=== PATIENT | male | born 2000 | race Caucasian/White ===

== ENCOUNTER 2025-06-12 08:48 | Emergency (ER) | payer BC, SELFPAY ==
[2025-06-12 08:53] VITALS: BP 95/47
[2025-06-12 09:05] VITALS: BMI 19.2
[2025-06-12] MEDS: TORADOL 30 MG IV (09:19)
[2025-06-12] MEDS: NSS 1000 IV (09:20)
[2025-06-12 09:21] LABS: Hematocrit 46.6 % (39.0-52.0); Hemoglobin 16.6 g/dL (13.0-18.0); Mean Corp Hgb Conc. 35.6 g/dL (33.0-37.0); Mean Corpuscular Volume 83.1 fL (80.0-94.0); Nucleated Red Blood Cells % 0 % (-); Platelet Count 266 10^3/uL (130-400); Red Cell Dist. Width 12.2 % (11.5-14.5)
[2025-06-12 09:37] LABS: ALT (SGPT) 30 U/L (0-50); AST (SGOT) 26 U/L (17-59); Albumin 5.1 g/dl (3.5-5.0); Alkaline Phosphatase 62 U/L (38-126); Blood Urea Nitrogen 12 mg/dl (9-20); Calcium 9.8 mg/dl (8.4-10.2); Carbon Dioxide 24 mmol/L (22-30); Chloride 105 mmol/L (98-107); Estimated Creatinine Clearance 110 ml/min; Glucose 108 mg/dl (70-99); Potassium 4.2 mmol/L (3.5-5.1); Sodium 139 mmol/L (135-145); Total Protein 8.0 g/dl (6.3-8.2); eGFR > 60.00
[2025-06-12 10:25] VITALS: BP 98/53
[2025-06-12] MEDS: FLOMAX 0.4 MG PO (10:41)
[2025-06-12] MEDS: TYLENOL 1000 MG PO (11:23)
[2025-06-12 11:52] LABS: Urine Character Clear (Clear)
[2025-06-12 11:58] LABS: Urine Squamous Cell 0-2 /LPF (Few)
[2025-06-12 11:59] LABS: Urine Red Blood Cell 50-60 /HPF (0-2)
--- NOTE | 2025-06-12 13:06 | ED.GENMED ---
History of Present Illness
General
Chief Complaint: Flank Pain
Time Seen by Provider: 06/12/25 08:58
History of Present Illness
History of Present Illness:
see MDM
Phy Exam
Physical Exam
Physical Exam:
see MDM
Course
Orders/Labs/Results
Orders:
Orders
06/12/25 09:07
Complete Blood Count/With Diff Urgent
Comprehensive Metabolic Panel Urgent
06/12/25 09:15
0.9% Sodium Chloride 1000 ml [Nss] 1,000 ml IV BOLUS
Ketorolac [Toradol] 30 mg IV NOW STA
06/12/25 09:16
CT Abd/pel Without Iv Or Oral Urgent
Comment:
Reason For Exam: R flank pain, hematuria
06/12/25 10:31
Tamsulosin [Flomax] 0.4 mg PO NOW STA
06/12/25 10:48
Acetaminophen [Tylenol] 1,000 mg PO NOW STA
06/12/25 11:24
Urinalysis Reflex To Culture Urgent
Date Specimen was Collected: 06/12/25
Time Specimen was Collected: 11:21
Urine Microscopic Reflex Cult Urgent
Urine Culture Urgent
KRISTINA Source: U
Specimen Description:
Date Specimen was Collected: 06/12/25
Time Specimen was Collected: 11:21
Abnormal Lab Results
06/12/25 06/12/25
09:07 11:24
MPV 10.8 H fL
(7.4-10.4)
Absolute Lymphs (auto) 4.0 H 10^3/uL
(1.2-3.4)
Absolute Monos (auto) 0.8 H 10^3/uL
(0.1-0.6)
Neutrophils % 41.1 L %
(42.2-75.2)
Glucose 108 H mg/dl
(70-99)
Albumin 5.1 H g/dl
(3.5-5.0)
Urine Ketones 1+ A
(Negative)
Ur Occult Blood Reflex 4+ A
(Negative)
Leukocyte Esterase Rfl 1+ A
(Negative)
Urine RBC 50-60 A /HPF
(0-2)
Urine Bacteria (Reflex) Few A
(Negative)
Urine Albumin (Reflex) 2+ A
(Neg - Trace)
06/12/25 09:07
06/12/25 09:07
Vital Signs
Initial and Last Documented VS:
Initial Vital Signs
Temp Pulse Resp BP Pulse Ox
36.4 C 69 18 95/47 100
06/12/25 08:53 06/12/25 08:53 06/12/25 08:53 06/12/25 08:53 06/12/25 08:53
Last Documented Vital Signs
Temp Pulse Resp BP Pulse Ox
36.4 C 69 16 98/53 100
06/12/25 08:53 06/12/25 10:25 06/12/25 10:25 06/12/25 10:25 06/12/25 10:25
MDM/Problems Addressed
Differential Diagnosis Includes:
see MDM
MDM/Problems Addressed:
Note:
CHIEF COMPLAINT(S)
Severe abdominal pain, suspected kidney stone.
HISTORY OF PRESENT ILLNESS
The patient is a 25-year-old male who presented with severe abdominal pain, suspecting it to be due to a kidney stone. The pain was described as reaching a level of ten out of ten when he awoke this morning at approximately 9:30 AM, accompanied by
sweating. The pain was initially severe but had decreased to a six or seven out of ten at the time of presentation. The patient reported blood in his urine two days prior, which was initially described as red but translucent, no clots, but the urine
cleared to a yellow color over the last two days.
He had visited urgent care 4 days agoy and a doctor on 3 days ago, during which he had no pain or further blood in the urine. Over the weekend, he remained symptom-free until the sudden onset of severe pain this morning. He denied any trauma to the
back or falls.
The patient has an ultrasound scheduled for tomorrow and a computed tomography scan was discussed as a more definitive diagnostic test for detecting the kidney stone.
no fever, rigords, weakness, diarrhea, constipation, dysuria
PAST MEDICAL AND SURGICAL HISTORY
Not discussed.
SOCIAL DETERMINANTS AFFECTING HEALTH
The patient is currently unemployed, having recently graduated from school, and is looking for a job.
ALLERGIES
The patient reports no known drug allergies.
PHYSICAL EXAM
- Nursing notes reviewed and vital signs reviewed.
- Abdominal examination for tenderness, pain evaluation, and abdomen positioning was conducted.
PROBLEM LIST
Acute: Suspected kidney stone with associated severe abdominal pain and hematuria.
PLAN
- Administer intravenous fluids and analgesics for pain management.
- Conduct a computed tomography scan of the abdomen and pelvis to evaluate for kidney stones.
- Follow up with lab work to assess kidney function.
- Monitor the size of the stone; if smaller than seven millimeters, provide conservative management with increased fluids and pain medication.
- Discuss urology consultation if the stone is large or not passing.
DIFFERENTIAL DIAGNOSIS
The Differential Diagnosis includes, in no particular order and is not limited to:
- Nephrolithiasis (kidney stone)
- Ureteral stone
- Pyelonephritis
- Urinary tract infection
- Appendicitis
- Diverticulitis
- Gastroenteritis
- Biliary colic
- Lower urinary tract obstruction
- Renal colic
CARE-UPDATE
06/12/25 - 09:49
Patient reports a reduction in pain, currently rating it as a 2 or 3 on a scale, indicating significant improvement. Imaging suggests a possible 5-millimeter stone in the ureter, believed to be passable with the aid of Flomax to facilitate
expulsion. Kidney function remains normal, and there is no sign of infection. The patient has been informed that, should the stone be larger than initially estimated or if passing it naturally becomes unlikely, consultation with urology may be
necessary. Instructions provided on maintaining arm position during fluid administration to ensure comfort and efficiency, with reassurance given about the typical pain reduction once the stone reaches the bladder.
CARE-UPDATE
06/12/25 - 12:20
The patient has been cleared to go home, as the blood in the urine and presence of white cells and bacteria align with the expected findings due to kidney stones, discussed wwith the urologist dr. meyer whom i spoke with, did not recommend abx.
Blood work shows no sign of infection. The patient did not pass the stones yet but is instructed to use a reusable strainer to catch any stones for analysis. Pain management includes alternating Tylenol with ibuprofen and, if necessary, oxycodone
with caution. If stones are passed, the patient should cease medication and schedule a follow-up with urology for stone analysis. Prescriptions will be sent to the patient�s pharmacy at [facility] and [facility].
*Pulse Oximetry
SaO2: 100
Oxygen Mode of Delivery: Room air
Patient hypoxic: no (100)
*Critical Care Note
Total Time (30-74mins, 75-104mins- exclusive of procedures): Not Applicable
ED Attending Note
-
Portions of this chart may have been created with voice recognition software.� Occasional wrong word or��sound alike� substitutions may have occurred due to the inherent limitations of voice recognition software.
Discharge Plan
Departure
Patient Disposition: Home (Routine Discharge)
Date of Disposition: 06/12/25
Time of Disposition: 12:21
Patient with high blood pressure during this ER visit?: No
Condition: Fair
Covid-19: Not Applicable
Discharge Problem:
Kidney stone
Instructions: Kidney Stones (DC), How to Strain Your Urine
Prescriptions:
New
ibuprofen 600 mg tablet
600 mg PO TID PRN (Reason: Pain) Qty: 20 0RF
tamsulosin [Flomax] 0.4 mg capsule
0.4 mg PO DAILY Qty: 14 0RF
oxycodone 5 mg tablet
5 mg PO BID PRN (Reason: Pain) Qty: 5 0RF
No Action
amoxicillin-pot clavulanate 1 TABLET tablet
1 tab PO Q12 10 Days 0RF
Referrals:
Yunior Alex I., [Family Provider, Internal Medicine]
Andres Meyer MD [Active, Urology] - Follow up in 1 week
Activity Restrictions/Additional Instructions:
Your pain is from 2 adjacent stones in your right ureter measuring 5 and 4 mm. Drink plenty of fluids to help pass the stone. Around 3:00 you can take another dose of ibuprofen, I prescribed 600 mg tablets you can take 1 every 8 hours. For
additional pain you can use 1 g of Tylenol, next 2 extra strength Tylenol every 4-6 hours. Your next dose of that could be around 4 PM.
If the pain is more severe you can try oxycodone 5 mg, you can cut the pill in half or take a whole pill every 8-12 hours. If your pain is exceeding this regimen you need to return to the emergency department. Use Flomax once a day until you pass
the stone. Each time you pee you should pee through the strainer. Call the urologist for an appointment. Return for pain, fever, shaking chills, vomiting, inability to urinate or any concerning
Interventions
Interventions:
*Risk Screen - Suicide Last Done: 06/12/25 08:53
*Nursing Disposition Last Done: 06/12/25 13:12
RM-Xrjvpk-Dtiwxcblms Assessment Last Done: 06/12/25 09:05
ED-Male Genitourinary Assessment Last Done: 06/12/25 09:05
Discharge Date and Time
Discharge Date/Time: 06/12/25 13:12
Print Language: PUERTO RICAN
== END 2025-06-12 13:12 | disposition home or self-care (01) ==
LOC: EMR 08:48
PROVIDERS: Physician Assistant; EMERGENCY PHYSICIAN Emergency Medicine; FAMILY PHYSICIAN Internal Medicine
DX: N13.2 Hydronephrosis with renal and ureteral calculous obstruction (principal)
CPT/HCPCS: 99284; 96374; 96361; 74176; 80053; 81003; 81015; 85025; 87086

== ENCOUNTER 2025-06-16 21:40 | Emergency (ER) | payer BC, OTHER, SELFPAY ==
[2025-06-16 21:42] VITALS: BP 124/84
[2025-06-16 23:29] VITALS: BMI 18.8
--- NOTE | 2025-06-16 23:30 | ED.GENMED ---
ED Provider Triage
<Fernando Man MD, Resident - Last Filed: 06/17/25 02:14>
-
Patient seen by provider in Triage?: Seen in Triage
History of Present Illness
<Fernando Man MD, Resident - Last Filed: 06/17/25 02:14>
General
Chief Complaint: Flank Pain
Source: patient
Exam Limitations: none
Time Seen by Provider: 06/16/25 23:08
Nursing documentation reviewed up to this point in time: agreed with
History of Present Illness
History of Present Illness:
Pt is a 25M who is complaining of moderate right sided flank pain that radiates to his groin. Associated with nausea and one episode of vomiting. No fever, chills, hematuria, dysuria. He was previously diagnosed on 06/12/25 with mild hydronephrosis
and a couple of 4-5 mm kidney stones after confirmation on CT scan and then he was discharged with 600 mg of ibuprofen, Flomax, oxycodone advice to hydrate adequately to help pass the stone, and a f/u with urologist Dr. Shultz. Since then, he still
has not passed any stones and came into the ED today because he checked his temperature at home and it was 101, he was concerned he had pyelonephritis. However in triage his temp was 97.6 F.
Past History
<Fernando Man MD, Resident - Last Filed: 06/17/25 02:14>
Past History
ED Past Medical History: Other (hydro nephrosis, kidney stones )
ED Past Surgical History: None
Patient has exhibited threatening behavior?: No
Social History
Tobacco: Non-smoker
Alcohol: None
Drug: None
Personal: Single
Living: with family
Review of Systems
<Fernando Man MD, Resident - Last Filed: 06/17/25 02:14>
Review of Systems
All Other Systems: ROS reviewed and negative except as documented in HPI and ROS
Phy Exam
<Fernando Man MD, Resident - Last Filed: 06/17/25 02:14>
General Physical Exam
General Presentation: well appearing and no apparent distress
General Skin: warm and dry
General Habitus: normal
General Mental: alert
Cardiovascular Exam
Cardiovascular Exam: regular rate/rhythm and no edema
Pulmonary Exam
Pulmonary Exam: lungs clear and no respiratory distress
Gastrointestinal Exam
Gastrointestinal Exam: normal bowel sounds, soft, non distended and tender (right upper quadrant tenderness on palpation )
Neurological Exam
Neurological Exam: alert and oriented x3
Skin Exam
Skin Exam: normal color, warm/dry, no rash and no petechia
Psychiatric Exam
Psychiatric Exam: normal mood/affect
Course
<Fernando Man MD, Resident - Last Filed: 06/17/25 02:14>
Orders/Labs/Results
Orders:
Orders
06/16/25 23:23
Urinalysis Reflex To Culture Urgent
Date Specimen was Collected: 06/17/25
Time Specimen was Collected: 00:09
06/16/25 23:38
CBC/With Diff [Complete Blood Count/With Diff] Urgent
CMP [Comprehensive Metabolic Panel] Urgent
06/17/25 00:10
Urine Microscopic Reflex Cult Urgent
Abnormal Lab Results
06/16/25 06/17/25
23:38 00:10
MPV 10.6 H fL
(7.4-10.4)
Absolute Neuts (auto) 6.6 H 10^3/uL
(1.4-6.5)
Absolute Monos (auto) 1.0 H 10^3/uL
(0.1-0.6)
Lymphocytes % 19.4 L %
(20.5-51.1)
Monocytes % 10.4 H %
(1.7-9.3)
Chloride 108 H mmol/L
(98-107)
Glucose 106 H mg/dl
(70-99)
Ur Occult Blood Reflex 4+ A
(Negative)
Urine RBC 7-10 A /HPF
(0-2)
Urine Albumin (Reflex) 1+ A
(Neg - Trace)
06/16/25 23:38
06/16/25 23:38
Vital Signs
Initial and Last Documented VS:
Initial Vital Signs
Temp Pulse Resp BP Pulse Ox
97.6 F 103 20 124/84 98
06/16/25 21:42 06/16/25 21:42 06/16/25 21:42 06/16/25 21:42 06/16/25 21:42
Last Documented Vital Signs
Temp Pulse Resp BP Pulse Ox
98.2 F 74 18 111/79 100
06/17/25 01:30 06/17/25 01:30 06/17/25 01:30 06/17/25 01:30 06/17/25 01:30
<Nati Flores, - Last Filed: 06/17/25 01:02>
Orders/Labs/Results
Orders:
Orders
06/16/25 23:23
Urinalysis Reflex To Culture Urgent
Date Specimen was Collected: 06/17/25
Time Specimen was Collected: 00:09
06/16/25 23:38
CBC/With Diff [Complete Blood Count/With Diff] Urgent
CMP [Comprehensive Metabolic Panel] Urgent
06/17/25 00:10
Urine Microscopic Reflex Cult Urgent
Abnormal Lab Results
06/16/25 06/17/25
23:38 00:10
MPV 10.6 H fL
(7.4-10.4)
Absolute Neuts (auto) 6.6 H 10^3/uL
(1.4-6.5)
Absolute Monos (auto) 1.0 H 10^3/uL
(0.1-0.6)
Lymphocytes % 19.4 L %
(20.5-51.1)
Monocytes % 10.4 H %
(1.7-9.3)
Chloride 108 H mmol/L
(98-107)
Glucose 106 H mg/dl
(70-99)
Ur Occult Blood Reflex 4+ A
(Negative)
Urine RBC 7-10 A /HPF
(0-2)
Urine Albumin (Reflex) 1+ A
(Neg - Trace)
06/16/25 23:38
06/16/25 23:38
Vital Signs
Initial and Last Documented VS:
Initial Vital Signs
Temp Pulse Resp BP Pulse Ox
97.6 F 103 20 124/84 98
06/16/25 21:42 06/16/25 21:42 06/16/25 21:42 06/16/25 21:42 06/16/25 21:42
Last Documented Vital Signs
Temp Pulse Resp BP Pulse Ox
98.2 F 74 18 111/79 100
06/17/25 01:30 06/17/25 01:30 06/17/25 01:30 06/17/25 01:30 06/17/25 01:30
<Fernando Man MD, Resident - Last Filed: 06/17/25 02:14>
MDM/Problems Addressed
Differential Diagnosis Includes:
- Nephrolithiasis , Ureteral stone, Pyelonephritis, Urinary tract infection, biliary colic, appendicitis, renal colic
MDM/Problems Addressed:
25 male with intermittent right flank pain radiating to this groin associated with nausea and vomiting. Right upper quadrant abdominal tenderness on palpation.
- CBC unremarkable
- CMP unremarkable
- UA shows 4+ occult blood
- Patient will be discharged home with instructions to f/u with urologist and continue flomax, ibuprofen, and hydrate adequatley.
<Fernando Man MD, Resident - Last Filed: 06/17/25 02:14>
*Pulse Oximetry
SaO2: 98
Oxygen Mode of Delivery: Room air
Patient hypoxic: no
*Critical Care Note
Total Time (30-74mins, 75-104mins- exclusive of procedures): Not Applicable
ED Attending Note
<Fernando Man MD, Resident - Last Filed: 06/17/25 02:14>
-
Portions of this chart may have been created with voice recognition software.� Occasional wrong word or��sound alike� substitutions may have occurred due to the inherent limitations of voice recognition software.
<Nati Flores DO - Last Filed: 06/17/25 01:02>
ED Attending Note
Patient seen and examined by attending physician: Yes
I performed the substantive portion of visit, reviewed & personally made and approve the management plan that is documented in note by myself or DOLORES.: Yes
I performed a history and physical exam of patient and discussed management with resident, I reviewed resident's note and agree with documented findings and plan of care.: Yes
ED Attending Note:
25-year-old male without significant past medical history presenting for concern of fever. Patient recently seen in the hospital on 06/12 with right-sided back and abdominal pain, found to have 2 kidney stones, 4 mm and 5 mm in size. Patient was
discharged with pain control and told to follow-up with urology, has an appointment on Thursday. He does not believe that he has passed the stones yet. Pain has been manageable with ibuprofen, however prior to arrival had a temperature of 101 with
forehead thermometer. He notes that he felt a little bit warm. Last dose of Tylenol or ibuprofen was earlier in the afternoon, no medication prior to arrival. Notes that his pain is currently controlled. Denies any specific urinary complaints.
Denies any additional acute medical complaints. Vital signs on arrival are normal.
On exam patient is resting comfortably, nontoxic. No present fever. Overall low suspicion for infected kidney stone. No tenderness to the abdomen or flank without indication for repeat imaging. Will repeat laboratory analysis to ensure no
developing leukocytosis and will also recheck urinalysis to ensure no UTI. Will continue to monitor patient's temperature.
01:00 - Patient remains afebrile, no leukocytosis, no signs of UTI. Ultimately feel stable for discharge with continued outpatient supportive management and urologic follow-up. Return precautions discussed patient verbalized understand
Discharge Plan
Departure
Patient Disposition: Home (Routine Discharge)
Patient with high blood pressure during this ER visit?: No
Condition: Fair
Discharge Problem:
Kidney stone
Instructions: Kidney stones in adults - ED (DC)
Prescriptions:
New
ibuprofen 600 mg tablet
600 mg PO Q8H PRN (Reason: Pain) Qty: 20 0RF
tamsulosin [Flomax] 0.4 mg capsule
0.4 mg PO DAILY 5 Days Qty: 5 0RF
ibuprofen 600 mg tablet
600 mg PO Q8H PRN (Reason: Pain) Qty: 14 0RF
tamsulosin [Flomax] 0.4 mg capsule
0.4 mg PO DAILY Qty: 7 0RF
No Action
ibuprofen 600 mg tablet
600 mg PO TID PRN (Reason: Pain) Qty: 20 0RF
tamsulosin [Flomax] 0.4 mg capsule
0.4 mg PO DAILY Qty: 14 0RF
oxycodone 5 mg tablet
5 mg PO BID PRN (Reason: Pain) Qty: 5 0RF
Referrals:
Yunior Alex I., [Family Provider, Internal Medicine]
Activity Restrictions/Additional Instructions:
1. Take ibuprofen as prescribed. Refilled patients ibuprofen.
2. Drink at least 3 liters of water a day
3. Take tamsulosin once a day
4. F/u with Urologist Dr. Peffer as scheduled.
Thank you for visiting the Emergency Department at [facility].
1. Please schedule a follow up appointment as directed. Call first thing tomorrow morning to make an appointment.
2. If indicated, please take your medications as instructed and indicated on discharge paperwork.
3. If any of your symptoms do not improve, or persist, or become more severe within 6-12 hours, please return to the emergency department for further care.
4. Please return to the emergency department if you develop a headache, neck pain/stiffness, fever greater than 100.4F, chest pain, shortness of breath, persistent nausea, vomiting, slurred speech, difficulty walking, numbness/tingling, weakness,
signs of infection or any other symptoms that are worrisome to you.
Please call [phone] if you have any questions.
Interventions
Interventions:
*Risk Screen - Suicide Last Done: 06/16/25 23:29
*General Assessment Last Done: 06/16/25 21:42
*Neglect/Abuse Screening Last Done: 06/16/25 23:08
*ED- Fall Risk Assessment Last Done: 06/16/25 23:08
*ED COVID-19 Vaccine History Last Done: 06/16/25 23:08
*ED Influenza Vaccine History Last Done: 06/16/25 23:08
*Nursing Disposition Last Done: 06/17/25 01:32
EK-Gskgqc-Xxrjjgocwg Assessment Last Done: 06/16/25 23:39
ED-Male Genitourinary Assessment Last Done: 06/16/25 23:39
Discharge Date and Time
Discharge Date/Time: 06/17/25 01:33
Print Language: GREEK
[2025-06-16 23:31] VITALS: BP 133/71
[2025-06-16 23:47] LABS: Hematocrit 40.5 % (39.0-52.0); Hemoglobin 14.9 g/dL (13.0-18.0); Mean Corp Hgb Conc. 36.8 g/dL (33.0-37.0); Mean Corpuscular Volume 82.8 fL (80.0-94.0); Nucleated Red Blood Cells % 0 % (-); Platelet Count 225 10^3/uL (130-400); Red Cell Dist. Width 11.8 % (11.5-14.5)
[2025-06-17 00:09] LABS: ALT (SGPT) 18 U/L (0-50); AST (SGOT) 22 U/L (17-59); Albumin 4.3 g/dl (3.5-5.0); Alkaline Phosphatase 53 U/L (38-126); Blood Urea Nitrogen 13 mg/dl (9-20); Calcium 9.3 mg/dl (8.4-10.2); Carbon Dioxide 25 mmol/L (22-30); Chloride 108 mmol/L (98-107); Estimated Creatinine Clearance 98 ml/min; Glucose 106 mg/dl (70-99); Potassium 3.9 mmol/L (3.5-5.1); Sodium 140 mmol/L (135-145); Total Protein 6.7 g/dl (6.3-8.2); eGFR > 60.00
[2025-06-17 00:52] LABS: Urine Character Clear (Clear)
[2025-06-17 01:26] LABS: Urine Squamous Cell 0-2 /LPF (Few)
[2025-06-17 01:30] VITALS: BP 111/79
== END 2025-06-17 01:33 | disposition home or self-care (01) ==
LOC: EMR 21:40
PROVIDERS: EMERGENCY PHYSICIAN Student in an Organized Health Care Education/Training Program; FAMILY PHYSICIAN Internal Medicine
DX: N20.0 Calculus of kidney (principal); Z87.442 Personal history of urinary calculi
CPT/HCPCS: 99283; 80053; 81003; 81015; 85025

== ENCOUNTER 2025-07-13 06:24 | Day surgery (SDC) | payer BC, SELFPAY ==
[2025-07-13 10:31] VITALS: BMI 18.6
[2025-07-13 10:32] VITALS: BP 127/78
[2025-07-13] MEDS: NORMOSOL-R/PLASMALYTE-A 1000 IV (10:48)
[2025-07-13 12:35] VITALS: BP 102/72; BP 127/78
[2025-07-13 12:45] VITALS: BP 104/49
[2025-07-13 13:00] VITALS: BP 115/69; BP 117/79
[2025-07-13 13:15] VITALS: BP 123/73
[2025-07-13 13:45] VITALS: BP 121/80
[2025-07-13] MEDS: TORADOL 15 MG IV (14:02)
== END 2025-07-13 14:25 | disposition home or self-care (01) ==
LOC: SDS 06:24
PROVIDERS: ATTENDING PHYSICIAN Urology
DX: N20.1 Calculus of ureter (principal)
CPT/HCPCS: 52332; 74018; 76000; C2617

== ENCOUNTER 2025-08-01 06:15 | Day surgery (SDC) | payer BC, SELFPAY ==
[2025-08-01] VITALS (8 sets, daily range): BP systolic 104–130; BP diastolic 51–83; BMI 19.3
[2025-08-01] MEDS: NORMOSOL-R/PLASMALYTE-A 1000 IV (07:12)
== END 2025-08-01 09:55 | disposition home or self-care (01) ==
LOC: SDS 06:15
PROVIDERS: ATTENDING PHYSICIAN Urology
DX: N20.1 Calculus of ureter (principal)
CPT/HCPCS: 52353; 76000; 82365